=== PATIENT | female | born 1975 | race Caucasian/White ===

== ENCOUNTER → 2017-01-20 | Day surgery (SDC) | payer OTHER ==
[~2017-01-20] VITALS: Ht 162.6 cm; Wt 112.5 kg
[~2017-01-20] MED LIST: ASPIR 8181 MG PO; DOCUSATE SODIU250 MG PO; PERCOCET 5-3251 EACH PO; ZOFRAN4 MG PO
== END | disposition home or self-care (01) ==
LOC: OR 05:42
PROVIDERS: Orthopaedic Surgery
PROC: 0SQD4ZZ Repair Left Knee Joint, Percutaneous Endoscopic Approach (ICD-10-PCS; 2017-01-20)
PROC: 0MUP47Z Supplement Left Knee Bursa and Ligament with Autologous Tissue Substitute, Percutaneous Endoscopic Approach (ICD-10-PCS; principal; 2017-01-20 07:30)
DX: S83.512A Sprain of anterior cruciate ligament of left knee, initial encounter (principal); S83.242A Other tear of medial meniscus, current injury, left knee, initial encounter; S83.282A Other tear of lateral meniscus, current injury, left knee, initial encounter; I10 Essential (primary) hypertension; Z88.0 Allergy status to penicillin; Z87.891 Personal history of nicotine dependence; W19.XXXA Unspecified fall, initial encounter; Y92.009 Unspecified place in unspecified non-institutional (private) residence as the place of occurrence of the external cause
CPT/HCPCS: 73560; 76000; C1713; J0171; J1100; J1885; J2250; J2405; J2710; J3010; J7120